=== PATIENT | female | born 2005 | race Caucasian/White ===

== ENCOUNTER 2025-03-16 18:24 | Emergency (ER) | payer OTHER, SELFPAY ==
[2025-03-16] VITALS (18 sets, daily range): BP systolic 118–146; BP diastolic 74–110; PULSE 72–115; RESP 16–24; TEMP 37.3; O2SAT 95–100
--- NOTE | 2025-03-16 18:47 | ED.HEATRA ---
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 Parents are present and did witness this event. No loss of consciousness. Since that time she has had bleeding from her lips and feels like her teeth are loose . She denies any problems breathing at this time and she denies any neck pain. Related Data Home Medications ?Medication ?Instructions ?Recorded ?Confirmed control pill 03/16/25 Allergies Allergy/AdvReac Type Severity Reaction Status Date / Time No Known Drug Allergies Allergy Verified 03/16/25 18:32 Review of Systems Status of ROS: Reports: 6 or more systems reviewed and unremarkable except as noted in History and below Exam Narrative: Exam Narrative: Same and the is alert and oriented she is quite tearful. Her pupils are equal round reactive and EOM is full. Her head is otherwise atraumatic and no cervical midline tenderness is noted. Both lips are very swollen expect show Ali upper lip. On the lower lip a laceration in the mid aspect extending diagonally into the buccal mucosa is noted. I do gently move her front teeth and they are not loose. She is very upset. Const: Vital Signs, click to edit/add: Vital Signs - 24 hr 03/16/25 18:33 03/16/25 19:18 03/16/25 19:19 Temperature 99.1 F Pulse Rate 94 108 H Pulse Rate [Pulse Oximeter] 115 H Respiratory Rate 24 Blood Pressure 130/88 Blood Pressure [Ri ght Upper Arm] 146/110 H Pulse Oximetry 95 99 100 Oxygen Delivery Me thod Room Air 03/16/25 19:30 03/16/25 19:32 03/16/25 19:45 Temperature Pulse Rate 93 97 96 Pulse Rate [Pulse Oximeter] Respiratory Rate Blood Pressure 118/81 Blood Pressure [Ri ght Upper Arm] Pulse Oximetry 100 100 100 Oxygen Delivery Me thod 03/16/25 19:47 03/16/25 20:00 03/16/25 20:01 Temperature Pulse Rate 95 95 108 H Pulse Rate [Pulse Oximeter] Respiratory Rate Blood Pressure 131/84 135/102 H Blood Pressure [Ri ght Upper Arm] Pulse Oximetry 100 100 100 Oxygen Delivery Me thod 03/16/25 20:15 03/16/25 20:17 03/16/25 20:30 Temperature Pulse Rate 98 93 99 Pulse Rate [Pulse Oximeter] Respiratory Rate Blood Pressure 127/90 H Blood Pressure [Ri ght Upper Arm] Pulse Oximetry 100 99 100 Oxygen Delivery Me thod 03/16/25 20:32 03/16/25 20:45 03/16/25 20:47 Temperature Pulse Rate 95 96 103 H Pulse Rate [Pulse Oximeter] Respiratory Rate Blood Pressure 124/85 121/89 Blood Pressure [Ri ght Upper Arm] Pulse Oximetry 100 100 100 Oxygen Delivery Me thod 03/16/25 21:00 03/16/25 21:02 03/16/25 21:57 Temperature Pulse Rate 101 H 94 Pulse Rate [Pulse Oximeter] 72 Respiratory Rate 16 Blood Pressure 121/82 Blood Pressure [Ri ght Upper Arm] 122/74 Pulse Oximetry 99 100 99 Oxygen Delivery Me thod Room Air Documenting provider has reviewed patient's vital signs: yes Course Course ED Course: Given the velocity of line drive proximity of the 3rd baseman and appearance of facial swelling will obtain CT of the face. I have asked Radiology to include mandible. At this time she is protecting her airway. Will place IV as I would like to keep her NPO and I do think she needs some pain control. We use morphine 4 mg and Zofran 4 mg at this time. Reevaluation(s) Reevaluation #1: Patient requested an additional dose of morphine 2 mg which is given. She is kept NPO at this time. Vital Signs Vital signs: Initial Vital Signs Temperature 99.1 F 03/16/25 18:33 Temperature Source Temporal Artery Scan 03/16/25 18:33 Pulse Rate 115 H 03/16/25 18:33 Respiratory Rate 24 03/16/25 18:33 Blood Pressure 146/110 H 03/16/25 18:33 Blood Pressure Mean 122 H 03/16/25 18:33 Blood Pressure Position Sitting 03/16/25 18:33 Pulse Oximetry 95 03/16/25 18:33 Oxygen Delivery Method Room Air 03/16/25 18:33 Vital Signs Temperature 99.1 F 03/16/25 18:33 Pulse Rate 115 H 03/16/25 18:33 Respiratory Rate 24 03/16/25 18:33 Blood Pressure 146/110 H 03/16/25 18:33 Pulse Oximetry 95 03/16/25 18:33 Oxygen Delivery Method Room Air 03/16/25 18:33 Temperature 99.1 F 03/16/25 18:33 Pulse Rate 72 03/16/25 21:57 Respiratory Rate 16 03/16/25 21:57 Blood Pressure 122/74 03/16/25 21:57 Pulse Oximetry 99 03/16/25 21:57 Oxygen Delivery Method Room Air 03/16/25 21:57 Medications Administered Medications: Discontinued Medications Generic Name Dose Route Start Last Admin Trade Name Freq PRN Reason Stop Dose Admin Cefazolin Sodium 1 gm/ Sodium 100 mls @ 200 mls/hr 03/16/25 20:13 03/16/25 20:57 Chloride IVPB 03/16/25 20:14 Infused ONCE ONE Infusion Morphine Sulfate 4 mg 03/16/25 18:48 03/16/25 18:58 Morphine 4 Mg/Ml Inj IVP 03/16/25 18:49 4 mg ONCE ONE Administration Morphine Sulfate 2 mg 03/16/25 20:12 03/16/25 20:22 Morphine 2 Mg/Ml Inj IVP 03/16/25 20:13 2 mg ONCE ONE Administration Morphine Sulfate 2 mg 03/16/25 21:40 03/16/25 21:51 Morphine 2 Mg/Ml Inj IVP 03/16/25 21:41 2 mg ONCE ONE Administration Ondansetron HCl 4 mg 03/16/25 18:48 03/16/25 18:57 Ondansetron 2 Mg/Ml Inj IVP 03/16/25 18:49 4 mg ONCE ONE Administration MDM - Head Injury MDM Narrative Medical decision making narrative: 1. Acute maxillary qopzkfdr-4-9 mm posterior displacement and unfortunately involving dentition. Patient is given Ancef 1 g, immunizations up-to-date, morphine and Zofran for pain control. I initially spoke with Dr. Barker of the [facility] system. Family is from [place] and thus closest to [facility] as a trauma center. Unfortunately they are unable to care for this injury given the dental involvement. I was able to get acceptance from [facility]. 2. Disposition-patient will be ground ambulance ALS transfer to [facility] Dr. Odom accepting. Earlier we did discuss pros and cons risks, benefits of ALS verses private vehicle transfer. Parents have concerns regarding pain control and thus chose ambulance. Patient has been protecting her airway here in the ER. There is an extended wait for an ambulance and they have now changed their mind and wish to go via ground. I do believe they are aware of the risks of traveling. Will give patient a additional dose of morphine 2 mg prior to departure. Imaging Data Facial CT: Attestation: I have reviewed the pertinent imaging results. My impression: Maxillary fractures noted. Radiologist's impression: There is an acute anterior maxillary fracture with involvement of the central and lateral incisor teeth. The fracture is displaced posteriorly approximately 2-3 mm. The mandible, zygomatic arches and pterygoid plates appear intact. Both globes are intact without evidence of rupture. The retrobulbar fat extraocular muscles appear preserved. Mild paranasal sinus mucosal disease. No air-fluid levels identified. Mild sinusoidal nasal septal deviation. Impression: 1. Acute anterior maxillary fracture with slight posterior displacement. 2. Fracture involves the central and lateral incisor teeth. Discharge Plan Discharge Clinical Impression: Maxillary fracture Patient Disposition: [facility] Discharge Location: [facility] Condition: Improved Additional Instructions: Proceed to the [facility] Emergency Room. If an emergency arises on the interstate, call 911.
--- NOTE | 2025-03-16 18:48 | CRLHL7_ITS ---
For Patients: As a result of the Century Cures Act, medical imaging exams and procedure reports are released immediately into your electronic medical record. You may view this report before your referring provider. If you have questions, please contact your health care provider. Indication: Trauma. Technique: CT facial bones without intravenous contrast. Comparison: None available. Findings: There is an acute anterior maxillary fracture with involvement of the central and lateral incisor teeth. The fracture is displaced posteriorly approximately 2-3 mm. The mandible, zygomatic arches and pterygoid plates appear intact. Both globes are intact without evidence of rupture. The retrobulbar fat extraocular muscles appear preserved. Mild paranasal sinus mucosal disease. No air-fluid levels identified. Mild sinusoidal nasal septal deviation. Impression: 1. Acute anterior maxillary fracture with slight posterior displacement. 2. Fracture involves the central and lateral incisor teeth. Please note that all CT scans at this facility use dose modulation, iterative reconstruction, and/or weight-based dosing when appropriate to reduce radiation dose to as low as reasonably achievable. Dictated by Sami Ashford MD @ 03/16/2025 7:36:33 PM (Electronically Signed)
[2025-03-16] MEDS: ONDANSETRON 2 MG/ML inj 4 MG IVP (18:57)
[2025-03-16] MEDS: MORPHINE 4 MG/ML INJ IVP (18:58)
[2025-03-16] MEDS: MORPHINE 2 MG/ML inj IVP ×2 (20:22→21:51)
[2025-03-16] MEDS: CEFAZOLIN 1 GM in 0.9 % SODIUM CHLORIDE Mini-bag 100 ML IVPB (20:25)
--- OUTSIDE RECORDS SUMMARY | 2025-03-16 20:54 | XMS_ITS | Encounter Summary ---
Author Organization [facility] Address [address] [place] [address] Care Team Providers Care Loader Magazine Grinder Name Role Phone Muriel Betts APRN, CNP [facility] Care Provider Encounter Details Date Type Department Care Team (Late st Contact Info) Description 12/21/2019 Correspondence None No Primary/Referring, Phy SPORTS PE CLEARANCE FORM Social History Tobacco Use Types Packs/Day Years Used Date Smoking Tobacco: Never Cigarettes Qu it: 03/20/2009 Smokeless Tobacco: Never Alcohol Use Standard Drinks/Week Comments No 0 (1 standard drink = 0.6 oz pur e alcohol) Comments No Sex and Gender Information Value Date Recorded Sex Assigned at Not on file Legal Sex Female 5:48 AM CDT Gender Identity Not on file Sexual Orientation Not on file documented as of this encounter Plan of Treatment Not on file documented as of this encounter Visit Diagnoses Not on filedocumented in this encounter Care Teams Loader Magazine Grinder Relationship Specialty Start Date End Date Muriel Betts APRN, CREDIT SUPPORT SPECIALIST [address] [place] [address] PCP - General Nurse Practitioner 03/31/16 documented as of this encounter
--- OUTSIDE RECORDS SUMMARY | 2025-03-16 20:54 | XMS_ITS | Encounter Summary ---
Author Organization [facility] Address [address] [place] [address] Care Team Providers Care Metal Extrusion Supervisor Name Role Phone Muriel Betts APRN, BRAND LEADER [facility] Care Provider Encounter Details Date Type Department Care Team (Late st Contact Info) Description 12/31/2016 Correspondence [facility] [address] [place], [place] [address] Muriel Betts, SCHOOL CLEANER, BRAND LEADER [address] [place], [place] [id number] SPORTS PHYSICAL Social History Tobacco Use Types Packs/Day Years [...] on filedocumented in this encounter Care Teams Metal Extrusion Supervisor Relationship Specialty Start Date End Date Muriel Betts APRN, BRAND LEADER [address] [place], [place] [phone] PCP - General Nurse Practitioner 03/31/16 documented as of this encounter
--- OUTSIDE RECORDS SUMMARY | 2025-03-16 20:54 | XMS_ITS | Clinical Summary ---
Author Organization [facility] Address [address] [place] [address] Care Team Providers Care Rail Filler Name Role Phone Muriel Betts APRN, MAGAZINE SUPERVISOR Prima ry Care Provider Source Comments You are receiving this document as you are listed as the primary care provider,follow-up provider, or the patient has been referred to you for consultation.This is in compliance with the Medicare and[facility] EHR Incentive Program,which states Providers who transition their patient to another setting of careor provider of care or refers their patient to another provider of care shouldprovide summary care record for each transition of care or referral. [facility] Allergies No known active allergies Medications Pediatric Hevnhows-Vrvtirlk-L (CHILDRENS CHEW VIT/MINERALS OR) Act brenda levonorgestrel-ethi nyl estrad (LUTERA) 0.1-20 MG-MCG tabletIndications:S urveillance for control, oral contraceptives Take 1 Tablet by mouth daily. 90 Tablet 4 4 Active Active Problems Problem Noted Date Diagnosed Date Keratosis pilaris 07/03/2015 History of chickenpox 03/06/2015 Overview (03/06/2015): Age 6 months. Cataract 03/20/2009 Resolved Problems Problem Noted Date Diagnosed Date Resolved Date Plantar wart of left foot 03/06/2015 Chronic constipation 10/19/2014 018 Dairy product intolerance 10/19/2014 Overview (07/01/2017): Dairy product intolerance - ? Nursemaid's Elbow 2007 10/09/2010 Varicella 04/01/2005 06/01/2005 Overview (07/01/2017): LW Onset: [id number] ; Varicella Zoster Immunizations Immunization Administration Dates Next Due DTaP 2004,2004,2004 ,2004 [id number] (Pediarix) 2004,2004 DTaP-IPV (Kinrix, 4-6 yrs) 03/20/2009 Flu Vac (3+ yrs) 07/27/2009 Flu Vac (6-35 mo) 2004 Flu Vac Preserv Free (6-35 mo) 2004 HepA Adult (19+ yrs) 09/20/2024 HepA Ped/Adol (1-18 yrs) 07/02/2022 HepB Ped/Adol (0-18 yrs) 2004,07/11,2004,2004,0 2004,2004 Hib (PedvaxHIB) 2004,2004 Hib, Unspecified Formulation 2004,05/22/20 04 IPV (Polio) 2004 MCV4 Menveo 2m.+ (two vial) 07/11/2020, 6 MMR 03/20/2009,04/01/2005,04/01/2005 Pneumococcal 7, PED 2004, 4,2004,2004,0 2004,2004 Polio, Unspecified Formulation 2004,2003,2004 Tdap 07/03/2015 Family History Relation Name Status Comments Father Alive Mother Alive Sister Alive Social History Tobacco Use Types Packs/Day Years Used Date Smoking Tobacco: Never Cigarettes Qu it: 03/20/2009 Smokeless Tobacco: Never Tobacco Cessation:Counseling Given: Not Answered Alcohol Use Standard Drinks/Week Comments No 0 (1 standard drink = 0.6 oz pur e alcohol) PHQ-2 Answer Date Recorded PHQ-2 Score 0 09/20/2024 Hunger Vital Sign Answer Date Recorded Within the past 12 months, y ou worried that your food would run out before you got the money to buy more. Never true 09/19/20 24 Within the past 12 months, t he food you bought just didn't last and you didn't have money to get more. Never true 09/19/2024 PRAPARE - Transportation Answer Date Re corded In the past 12 months, has l ack of transportation kept you from medical appointments or from getting medications? No 09/09 In the past 12 months, has l ack of transportation kept you from meetings, work, or from getting things needed for daily living? No 09/19/2024 Housing Stability Vital Sign Answer Frantz e Recorded In the last 12 months, was t here a time when you were not able to pay the mortgage or rent on time? No 09/19/2024 In the past 12 months, how m any times have you moved where you were living? 0 09/19/2024 At any time in the past 12 m [facility], were you homeless or living in a long-term (including now)? No 09/19/2024 Comments No Sex and Gender Information Value Date Recorded Sex Assigned at Not on file Legal Sex Female 5:48 AM CDT Gender Identity Not on file Sexual Orientation Not on file Last Filed Vital Signs Vital Sign Reading Time Taken Comments Blood Pressure 110/71 09/20/2024 7:41 AM CLOTHESPIN MACHINE OPERATOR Pulse 82 09/20/2024 7:41 AM CLOTHESPIN MACHINE OPERATOR Temperature 36.9 C (98.4 F) 07/02/2022 9:38 AM CDT Respiratory Rate - - Oxygen Saturation - - Inhaled Oxygen Concentration - - Weight 60.3 kg (133 lb) 09/20/2024 7:41 AM CLOTHESPIN MACHINE OPERATOR Height 161.9 cm (5' 3.75) 09/20/2024 7:41 AM CS T Body Mass Index 23.01 09/20/2024 7:41 AM CLOTHESPIN MACHINE OPERATOR Plan of Treatment Health Maintenance Due Date Last Done Comments Hep C Screening (Preventive Services) 2004 MenB Immunization Discussion 2004 HPV Vaccine (1 - 3-dose series) 2019 HIV Screening (Preventive Services) 2020 COVID-19 Vaccine ( season) 2024 DTaP/Tdap/Td Vaccine (6 - Tdap) 07/03/2025 07/03/2015, 03/20/2009, 2004, Additional history exists Influenza Vaccine (Season Ended) 2025 07/27/2009, 2004, 2004 Adult Preventive Visit 09/20/2025 , 07/02/2022, 09/04/2021, Additional history exists Chlamydia 09/20/2025 09/20/2024, 06/10, 09/04/2021 Zoster/Shingles Vaccine (1 of 2) 2054 Hib Vaccine Aged Out 2004, 07/11, 2004, Additional history exists No longer eligible based on patient's age to complete this topic HepB Vaccine Completed 2004, 09/09, 2004, Additional history exists Pneumococcal Vaccine Aged Out 2004, 2004, 2004, Additional history exists No longer eligible based on patient's age to complete this topic IPV (Polio) Vaccine Completed 03/20/2009, 2004, 2004, Additional history exists MCV4 Vaccine Completed 07/11/2020, 05/28/2016 HepA Vaccine Completed 09/20/2024, 07/02/2022 Procedures Procedure Name Priority Date/Time Associated Diagnosis Comments CHLAMYDIA & GC (14 YEARS & OLDER) Routine 09/20/2024 8:11 AM CLOTHESPIN MACHINE OPERATOR Routine screening for STI (sexually transmitted infection) from Last 3 Months or Most Recently Relevant to Health Maintenance Results * Chlamydia & GC (14 Years and Older): Vagina (09/20/2024 8:11 AM CLOTHESPIN MACHINE OPERATOR) Chlamydia Trachomatis STD Not Detected Not Detected 09/20/2024 4:13 PM CLOTHESPIN MACHINE OPERATOR [facility] N. gonorrhoeae STD Not Detected Not Detected 09/20/2024 4:13 PM CLOTHESPIN MACHINE OPERATOR [facility] Swab STD SPECIMEN FROM VAGINA / Unknown Non-blood Collection / Unknown 09/20/2024 8:11 AM CLOTHESPIN MACHINE OPERATOR 09/20/2024 8:32 AM CLOTHESPIN MACHINE OPERATOR Narrative [facility] - 09/20/2024 4:13 PM CLOTHESPIN MACHINE OPERATOR Test performed by Assistant Professor Of Life Sciences Mediated Amplification (TMA). us Iris Raphael DNP, SUPERVISOR FINISH END, MAGAZINE SUPERVISOR LAB_1 Ivy lanier Result [facility] [address] from Last 3 Months or Most Recently Relevant to Health Maintenance Insurance [facility] Care Teams Rail Filler Relationship Specialty Start Date End Date Muriel Betts, SUPERVISOR FINISH END, MAGAZINE SUPERVISOR [address] [place] [address] PCP - General Nurse Practitioner 03/31/16
== END 2025-03-16 22:00 | disposition short-term general hospital (02) ==
PROVIDERS: Emergency Provider Family Medicine
DX: S02.401A Maxillary fracture, unspecified side, initial encounter for closed fracture (principal); W21.07XA Struck by softball, initial encounter; Y93.64 Activity, baseball
CPT/HCPCS: 70486; 96365; 96375; 99284; 99285; J0690; J2270; J2405